=== PATIENT | female | born 1955 | race Caucasian/White ===

== ENCOUNTER 2016-08-16 07:10 | Outpatient (CLI) | payer OTHER | END 2016-08-16 07:11 | disposition home or self-care (01) | DX: R35.0 Frequency of micturition (principal) ==

== ENCOUNTER 2016-12-26 10:40 | Outpatient (CLI) | payer OTHER ==
[2016-12-26 13:07] LABS: BASOPHILS % (AUTO) 1.1 %; EOSINOPHILS # (AUTO) 0.1 10^3/uL (0.0-0.7); HCT - HEMATOCRIT 42.8 % (37.0-47.0); HGB - HEMOGLOBIN 14.6 g/dL (12.0-16.0); LYMPHOCYTES % (AUTO) 29.7 %; MEAN CORPUSCULAR HEMOGLOBIN 31.7 pg (27.0-31.0); MEAN CORPUSCULAR HGB CONC 34.1 g/dL (32.0-36.0); MEAN CORPUSCULAR VOLUME 92.9 fL (81.0-99.0); MEAN PLATELET VOLUME 8.3 fL (7.9-10.8); MONOCYTES # (AUTO) 0.3 10^3/uL (0.0-1.0); MONOCYTES % (AUTO) 9.9 %; NEUTROPHILS # (AUTO) 1.9 10^3/uL (1.5-6.6); NEUTROPHILS % (AUTO) 57.3 %; NUCLEATED RED BLOOD CELLS AUTO 0.1 /100WBC; RED BLOOD COUNT 4.61 10^6/uL (4.20-5.40); RED CELL DISTRIBUTION WIDTH 12.4 % (12.0-15.0); UNCORRECTED WHITE BLOOD COUNT 3.3 x10^3/uL; WHITE BLOOD COUNT 3.3 x10^3/uL (4.8-10.8)
[2016-12-26 13:50] LABS: ALBUMIN/GLOBULIN RATIO 1.6 (1.0-2.2); BILIRUBIN,TOTAL 0.5 mg/dL (0.2-1.0); BUN - BLOOD UREA NITROGEN 18 mg/dL (6-20); CALCIUM 9.7 mg/dL (8.5-10.3); CARBON DIOXIDE - CO2 25 mmol/L (21-32); CHLORIDE 106 mmol/L (101-111); CHOL/HDL RATIO 2.6 (<4.4); CHOLESTEROL 252 mg/dL; CREATININE 0.8 mg/dL (0.4-1.0); GFR - MDRD 72 (>89); GLUCOSE 115 mg/dL (70-100); HDL CHOLESTEROL 96 mg/dL; LDL/HDL RATIO 1.5 (<4.4); POTASSIUM 4.3 mmol/L (3.5-5.0); SODIUM 140 mmol/L (135-145); TOTAL PROTEIN 7.2 g/dL (6.7-8.2); TRIGLYCERIDES 80 mg/dL; VLDL CHOLESTEROL 16 mg/dL
== END 2016-12-26 10:41 | disposition home or self-care (01) ==
LOC: LAB.WCP 10:40
PROVIDERS: ATTEND Family Medicine
DX: Z00.00 Encounter for general adult medical examination without abnormal findings (principal); K58.9 Irritable bowel syndrome, unspecified; R19.7 Diarrhea, unspecified
CPT/HCPCS: 36415; 80053; 80061; 85025

== ENCOUNTER 2017-02-16 15:30 | Outpatient (CLI) | payer OTHER ==
[2017-02-16 12:52] LABS: BASOPHILS % (AUTO) 0.6 %; EOSINOPHILS # (AUTO) 0.2 10^3/uL (0.0-0.7); EOSINOPHILS % (AUTO) 3.9 %; HCT - HEMATOCRIT 42.3 % (37.0-47.0); HGB - HEMOGLOBIN 14.7 g/dL (12.0-16.0); LYMPHOCYTES # (AUTO) 1.1 10^3/uL (1.5-3.5); LYMPHOCYTES % (AUTO) 24.8 %; MEAN CORPUSCULAR HEMOGLOBIN 32.3 pg (27.0-31.0); MEAN CORPUSCULAR HGB CONC 34.7 g/dL (32.0-36.0); MEAN CORPUSCULAR VOLUME 93.3 fL (81.0-99.0); MEAN PLATELET VOLUME 8.1 fL (7.9-10.8); MONOCYTES # (AUTO) 0.3 10^3/uL (0.0-1.0); MONOCYTES % (AUTO) 7.1 %; NEUTROPHILS # (AUTO) 2.9 10^3/uL (1.5-6.6); NEUTROPHILS % (AUTO) 63.6 %; RED BLOOD COUNT 4.54 10^6/uL (4.20-5.40); RED CELL DISTRIBUTION WIDTH 12.6 % (12.0-15.0); UNCORRECTED WHITE BLOOD COUNT 4.5 x10^3/uL; WHITE BLOOD COUNT 4.5 x10^3/uL (4.8-10.8)
== END 2017-02-16 15:31 | disposition home or self-care (01) ==
LOC: LAB.WCP 15:30
PROVIDERS: ATTEND Family Medicine
DX: D72.819 Decreased white blood cell count, unspecified (principal)
CPT/HCPCS: 36415; 85025

== ENCOUNTER 2017-03-28 15:42 | Outpatient (CLI) | payer OTHER ==
--- NOTE | 2017-03-30 20:55 | Mammography Report ---
DIGITAL SCREENING MAMMOGRAM: 03/28/2017 CLINICAL INDICATION: A 52-ebmz-lfx-year-old for screening. COMPARISON: 12/2015, 01/2014, 11/2012, 03/2012, 01/2011, 01/2010. TECHNIQUE: Routine CC and MLO projections were obtained of the breasts. The breasts again demonstrate heterogeneously dense fibroglandular parenchyma bilaterally. Punctate, typically benign calcifications are present. No suspicious masses, clustered microcalcifications, o r regions of architectural distortion are identified. IMPRESSION: BENIGN FINDINGS. RECOMMENDATION: ROUTINE ANNUAL SCREENING UNLESS OTHERWISE CLINICALLY INDICATED. BIRADS CATEGORY: 2, BENIGN FINDINGS. STANDARD QUALIFYING STATEMENTS 1. This examination was reviewed with the aid of Computed-Aided Detection (CAD). 2. A negative or benign imaging report should not delay biopsy if clinically suspicious findings are present. Consider surgical consultation if warranted. More than 5% of cancers are not identified b y imaging. 3. Dense breasts may obscure an underlying neoplasm. JOB #: [id number] EXT JOB #:[id number]
== END 2017-03-28 15:43 | disposition home or self-care (01) ==
LOC: DI 15:42
PROVIDERS: ATTEND Family Medicine
DX: Z12.31 Encounter for screening mammogram for malignant neoplasm of breast (principal)
CPT/HCPCS: 77067

== ENCOUNTER 2017-08-02 12:18 | Day surgery (SDC) | payer OTHER ==
[2017-08-02] MEDS ORDERED: LACTATED RINGERS 1,000 ML IV ONE (13:11)
[2017-08-02] MEDS ORDERED: fentaNYL 250 MCG/5 ML VIAL IVP ONE (13:20)
[2017-08-02] MEDS ORDERED: MIDAZOLAM 2 MG/2 ML VIAL IVP ONE (13:20)
[2017-08-02 14:36] VITALS: BP 110/50
== END 2017-08-02 12:19 | disposition home or self-care (01) ==
LOC: SDS 12:18
PROVIDERS: ATTEND Internal Medicine
PROC: 0DBE8ZX Excision of Large Intestine, Via Natural or Artificial Opening Endoscopic, Diagnostic (ICD-10-PCS; principal; 2017-08-02 13:00)
DX: R19.7 Diarrhea, unspecified (principal); K62.5 Hemorrhage of anus and rectum; K64.8 Other hemorrhoids; K57.30 Diverticulosis of large intestine without perforation or abscess without bleeding; F41.9 Anxiety disorder, unspecified; F32.9 Major depressive disorder, single episode, unspecified; E03.9 Hypothyroidism, unspecified
CPT/HCPCS: 45380; J3010; J7120

== ENCOUNTER 2017-12-18 08:00 | Outpatient (CLI) | payer OTHER ==
[2017-12-18 19:33] LABS: CALCIUM 9.7 mg/dL (8.5-10.3); CREATININE 0.9 mg/dL (0.4-1.0)
[2017-12-18 19:38] LABS: BASOPHILS % (AUTO) 0.7 %; EOSINOPHILS # (AUTO) 0.1 10^3/uL (0.0-0.7); EOSINOPHILS % (AUTO) 2.7 %; HGB - HEMOGLOBIN 15.1 g/dL (12.0-16.0); LYMPHOCYTES # (AUTO) 1.1 10^3/uL (1.5-3.5); LYMPHOCYTES % (AUTO) 25.4 %; MEAN CORPUSCULAR HEMOGLOBIN 32.4 pg (27.0-31.0); MEAN CORPUSCULAR HGB CONC 34.3 g/dL (32.0-36.0); MEAN CORPUSCULAR VOLUME 94.5 fL (81.0-99.0); MEAN PLATELET VOLUME 8.6 fL (7.9-10.8); MONOCYTES # (AUTO) 0.4 10^3/uL (0.0-1.0); MONOCYTES % (AUTO) 8.9 %; NEUTROPHILS # (AUTO) 2.7 10^3/uL (1.5-6.6); NEUTROPHILS % (AUTO) 62.3 %; PLT - PLATELET COUNT 236 10^3/uL (130-450); RED BLOOD COUNT 4.64 10^6/uL (4.20-5.40); RED CELL DISTRIBUTION WIDTH 13.3 % (12.0-15.0); WHITE BLOOD COUNT 4.3 x10^3/uL (4.8-10.8)
== END 2017-12-18 08:01 | disposition home or self-care (01) ==
LOC: LAB.WCP 08:00
PROVIDERS: ATTEND Family Medicine
DX: D72.819 Decreased white blood cell count, unspecified (principal); E03.9 Hypothyroidism, unspecified
CPT/HCPCS: 36415; 80048; 84439; 84443; 85025

== ENCOUNTER 2018-02-02 12:54 | Outpatient (CLI) | payer OTHER ==
--- NOTE | 2018-02-02 16:10 | Ultrasound Report ---
Reason: ABDOMINAL PAIN,RIGHT UPPER QUADRANT Procedure Date: 02/02/2018 Accession Number: [id number] / [id number] Procedure: US - Abdomen Limited CPT Code: FULL RESULT: EXAM: ABDOMEN ULTRASOUND LIMITED, RUQ EXAM DATE: 02/02/2018 02:13 PM. CLINICAL HISTORY: Abdominal pain, right upper quadrant. COMPARISON: None. TECHNIQUE: Real-time scanning was performed with static images obtained. FINDINGS: Liver: Normal in size and echotexture. Right lobe of the liver measures up to 15.4 cm. Main portal vein flow: Hepatopetal. Gallbladder: Normal. No stones, wall thickening, or sonographic Rasheed's sign. Biliary System: CBD measures 6 mm. No intrahepatic or extrahepatic ductal dilatation. Other: Dedicated sonographic evaluation of the palpable lump along the right back was performed and demonstrated a 1.3 x 0.7 x 0.5 cm ill-defined mildly hyperechoic relative to the surrounding fat mass without increased vascularity by color Doppler. This appearance is nonspecific but possibly represents a lipoma. IMPRESSION: No cholelithiasis or cholecystitis. Nonspecific soft tissue mass as described, possibly lipoma. RADIA
== END 2018-02-02 12:55 | disposition home or self-care (01) ==
LOC: DI 12:54
PROVIDERS: ATTEND Family Medicine
DX: R10.11 Right upper quadrant pain (principal)
CPT/HCPCS: 76705

== ENCOUNTER 2018-02-20 09:06 | Outpatient (CLI) | payer OTHER ==
[2018-02-20] MEDS ORDERED: SINCALIDE 5 MCG VIAL ONE (10:12)
[2018-02-20] MEDS ORDERED: SINCALIDE 1.6 MCG in SODIUM CHLORIDE 0.9% 50 ML IV ONE (12:20)
--- NOTE | 2018-02-20 15:53 | Nuclear Medicine Report ---
Reason: ABDOMINAL PAIN, RUQ Procedure Date: 02/20/2018 Accession Number: [id number] / [id number] Procedure: NM - Hepatobiliary HIDA w/ Rx CPT Code: FULL RESULT: EXAM: HEPATOBILIARY SCAN WITH CCK/KINEVAC ADMINISTRATION EXAM DATE: 02/20/2018 12:16 PM. CLINICAL HISTORY: ABDOMINAL PAIN, RUQ. COMPARISON: None. TECHNIQUE: Following the intravenous administration of 5.2 mCi of Tc99m Mebrofenin, a hepatobiliary scan was done centered on the liver and gallbladder in multiple sequential images and projections. Following the intravenous administration of 1.6 mcg of CCK/ Kinevac over the course of approximately 60 minutes, dynamic imaging was done and the gallbladder ejection fraction was calculated. FINDINGS: Normal extraction of tracer from the blood pool indicating normal hepatocellular function. The liver size and shape is grossly within normal limits. Appearance of tracer in the biliary tree as early as 5 minutes, within normal limits. Appearance of tracer in the gallbladder as early as 15 minutes, within normal limits, with good progression of filling throughout the remainder of the initial hour. Appearance of tracer in the small bowel following CCK administration. With CCK administration, the gallbladder demonstrates an effective contraction. The gallbladder ejection fraction is calculated to be 98%, well above the lower limit of normal of 38% for a 60-minute injection. No evidence of enteric reflux into the stomach. No significant collection of tracer remaining in the common bile duct by the end of the study. IMPRESSION: 1. No scintigraphic evidence of acute cholecystitis. 2. Patent common bile duct. 3. Gallbladder ejection fraction is in the normal range. 4. Delayed biliary to bowel transit. This is a nonspecific finding that can be seen in a subset of normal patients, however differential considerations include biliary dyskinesia and chronic cholecystitis, among others. RADIA
== END 2018-02-20 09:07 | disposition home or self-care (01) ==
LOC: DI 09:06
PROVIDERS: ATTEND Nurse Practitioner
DX: R10.11 Right upper quadrant pain (principal)
CPT/HCPCS: 78227; J7040

== ENCOUNTER 2018-08-27 08:00 | Outpatient (CLI) | payer OTHER ==
[2018-08-27 12:46] LABS: ALBUMIN 3.9 g/dL (3.2-5.5); ALBUMIN/GLOBULIN RATIO 1.4 (1.0-2.2); ALKALINE PHOSPHATASE 69 IU/L (42-121); ALT ALANINE AMINOTRANSFERASE 24 IU/L (10-60); AST ASPARTATE AMINOTRANSFERASE 29 IU/L (10-42); BILIRUBIN,TOTAL 0.5 mg/dL (0.2-1.0); BUN - BLOOD UREA NITROGEN 15 mg/dL (6-20); CALCIUM 9.2 mg/dL (8.5-10.3); CARBON DIOXIDE - CO2 22 mmol/L (21-32); CHLORIDE 110 mmol/L (101-111); CHOL/HDL RATIO 3.5 (<4.4); CHOLESTEROL 267 mg/dL; CREATININE 0.8 mg/dL (0.4-1.0); GFR - MDRD 72 (>89); GLUCOSE 111 mg/dL (70-100); HDL CHOLESTEROL 76 mg/dL; LDL CHOLESTEROL,CALCULATED 161 mg/dL; LDL/HDL RATIO 2.1 (<4.4); SODIUM 141 mmol/L (135-145); TOTAL PROTEIN 6.6 g/dL (6.7-8.2); VLDL CHOLESTEROL 30 mg/dL
[2018-08-27 12:51] LABS: BASOPHILS % (AUTO) 0.9 %; EOSINOPHILS # (AUTO) 0.2 10^3/uL (0.0-0.7); EOSINOPHILS % (AUTO) 5.6 %; LYMPHOCYTES # (AUTO) 1.2 10^3/uL (1.5-3.5); LYMPHOCYTES % (AUTO) 27.4 %; MEAN CORPUSCULAR HEMOGLOBIN 31.5 pg (27.0-31.0); MEAN CORPUSCULAR HGB CONC 33.8 g/dL (32.0-36.0); MEAN PLATELET VOLUME 8.7 fL (7.9-10.8); MONOCYTES # (AUTO) 0.4 10^3/uL (0.0-1.0); MONOCYTES % (AUTO) 8.7 %; NEUTROPHILS # (AUTO) 2.4 10^3/uL (1.5-6.6); NEUTROPHILS % (AUTO) 57.4 %; PLT - PLATELET COUNT 217 10^3/uL (130-450); RED BLOOD COUNT 4.44 10^6/uL (4.20-5.40); RED CELL DISTRIBUTION WIDTH 12.3 % (12.0-15.0); WHITE BLOOD COUNT 4.3 x10^3/uL (4.8-10.8)
== END 2018-08-27 23:59 | disposition home or self-care (01) ==
LOC: LAB.WCP 08:00
PROVIDERS: ATTEND Family Medicine
DX: E03.9 Hypothyroidism, unspecified (principal); Z13.220 Encounter for screening for lipoid disorders
CPT/HCPCS: 36415; 80053; 80061; 83721; 84443; 85025

== ENCOUNTER 2018-10-03 15:04 | Outpatient (CLI) | payer OTHER ==
--- NOTE | 2018-10-04 08:50 | Mammography Report ---
Reason: SCREENING MAMMO Procedure Date: 10/03/2018 Accession Number: [id number] / [id number] Procedure: [facility] - Screening Mammo Dig Bilat CPT Code: FULL RESULT: EXAM: Screening Mammo Dig Bilat DATE: 10/03/2018 3:37 PM CLINICAL HISTORY: Screening encounter. Family history of breast cancer in a maternal grandmother at the age of 61. TECHNIQUE: (B) - Bilateral CC, laterally exaggerated CC, MLO views were obtained. COMPARISON: 03/28/2017 through 12/10/2012. PARENCHYMAL PATTERN: (D) - The breast(s) demonstrate(s) heterogeneously dense fibroglandular parenchyma. FINDINGS: There are coarse typically benign calcifications. There are no suspicious masses, calcifications, or areas of distortion. IMPRESSION: Benign findings. BI-RADS category 2. RECOMMENDATION: (ANNUAL) - Recommend routine annual screening mammography. BI-RADS CATEGORY: (2) - Benign Findings. STANDARD QUALIFYING STATEMENTS: 1. This examination was not reviewed with the aid of Computer-Aided Detection (CAD). 2. A negative or benign imaging report should not preclude biopsy if clinically suspicious findings are present. 3. Dense breasts may obscure an underlying neoplasm. 4. This examination was reviewed without the aid of 3D breast imaging (tomosynthesis).
== END 2018-10-03 15:05 | disposition home or self-care (01) ==
LOC: DI 15:04
PROVIDERS: ATTEND Family Medicine
DX: Z12.31 Encounter for screening mammogram for malignant neoplasm of breast (principal); Z80.3 Family history of malignant neoplasm of breast
CPT/HCPCS: 77067

== ENCOUNTER 2018-12-27 11:30 | Outpatient (CLI) | payer OTHER ==
--- NOTE | 2018-12-28 00:36 | XRAY Report ---
Reason: PRODUCTIVE COUGH PURULENT SPUTUM Procedure Date: 12/27/2018 Accession Number: [id number] / [id number] Procedure: XR - Chest 2 View X-Ray CPT Code: 22830 FULL RESULT: EXAM: CHEST RADIOGRAPHY EXAM DATE: 12/27/2018 11:55 AM. CLINICAL HISTORY: PRODUCTIVE COUGH PURULENT SPUTUM. COMPARISON: None. TECHNIQUE: 2 views. FINDINGS: Lungs/Pleura: No focal opacities evident. No pleural effusion. No pneumothorax. Normal volumes. Mediastinum: Heart and mediastinal contours are unremarkable. IMPRESSION: No acute cardiopulmonary disease seen. RADIA
== END 2018-12-27 11:31 | disposition home or self-care (01) ==
LOC: DI 11:30
PROVIDERS: ATTEND Family Medicine
DX: R05 Cough (principal)
CPT/HCPCS: 71046

== ENCOUNTER 2019-01-14 14:10 | Outpatient (CLI) | payer OTHER ==
--- NOTE | 2019-01-14 15:09 | SLEEP CARE CONSULTATION ---
Information from patient questionnaire entered by Radha Davis. I have reviewed and concur with the information entered by Radha Davis. This document represents the service I personally performed and the decisions made by me, Shanice Stevens MD, [facility]. History of Present Illness Reason for Visit: Re-establish care Chief Complaint: reports: Other (PREVIOUSLY DIAGNOSED MODERATE OBSTRUCTIVE SLEEP APNEA (AHI 18.8)) Duration of Symptoms: 10 YEARS Usual bedtime: 7272-9929 Time it takes to fall asleep: 30 MINUTES Snores at night: Yes Observed to quit breathing while asleep: Yes Sleeps alone due to snoring: No Number of times waking at night: 1-2 Toss, Turn, or Twitch while sleeping: Yes Recalls having dreams: Yes Usually gets out of bed at: 0700 Feels refreshed in the morning: No Morning headache: No Ever fallen asleep while driving: Yes Takes day naps: No Dreams during day naps: No Prior sleep studies: Yes Year and Where: 2008 [facility] SLEEP [facility] Additional HPI information: I had the pleasure of seeing Ms. Carmona today regarding obstructive sleep apnea-hypopnea. As you know, she is a 63 year old lady who was diagnosed with the sleep-disordered breathing here in 2008. The AHI was 18.8 and ramona oxygen saturation, 82%. She was prescribed a CPAP device set at 7 cmH2O. She continues to use every night and all night. The compliance/efficacy report is not available because she did not have the memory card inserted all the way into her machine. She wears a full face mask. She gets his supplies from [employer]. She finds the treatment helpful at first but not much now and wonders if she still needs to use it. She lost 40 lbs since she had the sleep studies 10 years ago. She talked to an ENT at [facility] and was offered laser surgery to the soft palate. She complains of chronic cough and nasal congestion. Subjective Initial [place] Sleepiness Scale score: 8 Past Medical History Past Medical History: reports: Anxiety, Depression, Other (PTSD, PEDRO) Social History The patient's occupation is RETIRED. Patient is and lives in [place]. Have you smoked in the past 12 months: No Alcohol use: No Caffeine use: Yes Caffeine amount and frequency: 1-2 CUPS BEFORE NOON Family History Family history of sleep disordered breathing: Yes Family Hx Sleep Apnea: Father: Sleep apnea - Treated, Sibling: Snoring Allergies and Home Medications Drug allergies reviewed: Yes Home medication list reviewed: Yes Review of Systems Weight loss over past 5 years: 30LBS Cardiovascular: denies: high blood pressure, palpitations, chest pain, irregular heart rate or pulse, leg or foot swelling, have to sleep sitting up, other Respiratory: reports: sputum production, chronic cough Gastrointestinal: denies: heartburn, difficulty swallowing, nausea, vomitting, diarrhea, abdominal pain, other Urinary: denies: incontinence, frequency, urgency, impotence, other Neurological: denies: headaches, seizure, head trauma, disorientation, speech dysfunction, gait or balance problems, fainting or unconsciousness, other Psychiatric: reports: anxiety, depression Ear/Nose/Throat: reports: nasal congestion, sinus problems Endocrine: reports: thyroid disease Immunologic: denies: sneezing, rash, itching, allergies to food or environment, other Physical Exam Vital signs obtained and entered by: Dr. Stevens Blood Pressure: 120/80 Cuff size: long Heart Rate: 70 O2 Saturation: 97 Height: 5 ft 5 in Weight (kg): 165 lb (was 197 in 2009) Body Mass Index: 27.4 BMI Classification: Overweight Neck circumference: 13.5 (was 14.5 in 2009) HEENT: No craniofacial malformation Nostrils: patent to airflow Turbinates: normal Septum: midline Mouth and throat: narrow oropharynx Soft palate: long Hard palate: normal Uvula visualization: 100% Mallampati Class I Tongue: normal in size Tonsils: absent bilaterally Chin and jaw: normal size and position Neck: Thryomegaly Lungs: clear bilaterally Abdomen: soft Extremities: no edema or clubbing Neurologic: intact Impression and Plan I spent 100% of this [15][30] minute visit face to face with the patient with greater than 50% of this was spent time counseling the patient and coordination of care.
[2019-01-14 15:10] VITALS: BP 120/80
== END 2019-01-14 14:11 | disposition home or self-care (01) ==
LOC: SC 14:10
PROVIDERS: ATTEND Internal Medicine Pulmonary Disease
DX: G47.33 Obstructive sleep apnea (adult) (pediatric) (principal)
CPT/HCPCS: 99203; 99212

== ENCOUNTER 2019-01-28 19:27 | Outpatient (CLI) | payer OTHER | END 2019-01-28 19:28 | disposition home or self-care (01) | LOC: SC 19:27 | PROVIDERS: ATTEND Internal Medicine Pulmonary Disease | DX: G47.33 Obstructive sleep apnea (adult) (pediatric) (principal) | CPT/HCPCS: 95810 ==

== ENCOUNTER 2019-02-12 12:47 | Outpatient (CLI) | payer OTHER ==
--- NOTE | 2019-02-12 13:13 | SLEEP CARE CONSULTATION ---
Information from patient questionnaire entered by Arelis Ruffin. I have reviewed and concur with the information entered by Arelis Ruffin. This document represents the service I personally performed and the decisions made by me, Shanice Stevens MD, [facility]. History of Present Illness Initial [place] Sleepiness Scale score: 8 Current Kila Sleepiness Scale score: 2 Additional HPI information: HPI: returned for follow up of the sleep study she had on 01/28/2019. The polysomnography showed that the patient had normal sleep efficiency. The sleep architecture was normal as well. Respiratory monitoring showed no significant sleep disordered breathing (AHI = 2.8). There was mild hypoxia (ramona oxygen saturation of 86% and 10% to the total sleep time was spent with oxygen saturation below 90%). The few respiratory events occurred mainly during supine REM sleep (supine AHI = 8.8; non-supine = 0.00). Snore was light to loud in intensity. There was no significant periodic leg movement of sleep. Cardiac rhythm was normal sinus rhythm without significant arrhythmia. No abnormal behavior (parasomnia) observed during the night. The patient was informed of these findings. I explained to her that the sleep- disordered breathing has resolved. There is only a slight evidence of it during supine sleep. Allergies and Home Medications Drug allergies reviewed: Yes Home medication list reviewed: Yes Review of Systems Review of systems same as previous: Yes Physical Exam Weight: 165 lb Impression and Plan IMPRESSION: 1. Obstructive Sleep Apnea-Hypopnea Syndrome, resolved with 40-lb weight loss. Snore remains light to loud. She may use her CPAP on as needed basis. If she uses the CPAP, she should keep the heated humidifier setting high to help with chronic sinusitis. PLAN: 1. Use CPAP on as needed basis. 2. Attempt to lose more weight. 3. Return for urinary frequency on as needed basis. I spent 100% of this 20 minute visit face to face with the patient with greater than 50% of this was spent time counseling the patient and coordination of care.
== END 2019-02-12 12:48 | disposition home or self-care (01) ==
LOC: SC 12:47
PROVIDERS: ATTEND Internal Medicine Pulmonary Disease
DX: G47.33 Obstructive sleep apnea (adult) (pediatric) (principal)
CPT/HCPCS: 99212; 99213

== ENCOUNTER 2019-03-13 11:30 | Outpatient (CLI) | payer OTHER | END 2019-03-13 11:31 | disposition home or self-care (01) | LOC: RT 11:30 | PROVIDERS: ATTEND Specialist | DX: J32.9 Chronic sinusitis, unspecified (principal) | CPT/HCPCS: 93005 ==

== ENCOUNTER 2019-06-15 08:00 | Outpatient (CLI) | payer MEDICARE, OTHER | END 2019-06-15 23:59 | disposition home or self-care (01) | LOC: LAB.R 08:00 | PROVIDERS: ATTEND Family Medicine | DX: L03.211 Cellulitis of face (principal) | CPT/HCPCS: 87070; 87205 ==

== ENCOUNTER 2020-09-17 | Emergency (ER) | payer MEDICARE, OTHER, BC ==
--- NOTE | 2020-09-17 11:02 | ED Physician Documentation ---
History of Present Illness - Stated complaint Stated Complaint: RT BREAST PX - Chief complaint Chief Complaint: General - History obtained from History obtained from: Patient - History of Present Illness Timing: How many days ago (2) Pain level max: 4 Pain level now: 3 - Additonal information Additional information: 65-year-old female with pain to the right breast for several days. Redness, swelling, tender. No fevers. No chills. No injury. Nothing makes it better or worse. Review of Systems Ten Systems: 10 systems reviewed and negative Constitutional: denies: Fever, Chills, Myalgias Nose: denies: Rhinorrhea / runny nose GI: denies: Vomiting, Constipation, Diarrhea Skin: denies: Rash Musculoskeletal: denies: Neck pain, Back pain Neurologic: denies: Headache PD PAST MEDICAL HISTORY - Past Medical History Cardiovascular: None Respiratory: Sleep apnea, CPAP use GI: Chronic diarrhea, Hemorrhoids : None HEENT: None Psych: None Musculoskeletal: Osteoarthritis Derm: None - Past Surgical History General: Colonoscopy Ortho: Other HEENT: Tonsil/Adenoidectomy - Present Medications Home Medications: Ambulatory Orders Medication Instructions Recorded Confirmed Levothyroxine [Synthroid] 100 mcg PO DAILY 04/28/14 08/01/17 Alprazolam [Xanax] 0.25 mg PO PRN PRN 08/02/17 08/02/17 clindamycin HCL [Cleocin HCl] 300 mg PO Q6H #40 cap 09/17/20 - Allergies Allergies/Adverse Reactions: Allergies Allergy/AdvReac Type Severity Reaction Status Date / Time Penicillins Allergy Edema Verified 09/17/20 10:47 PD ED PE NORMAL - Vitals Vital signs reviewed: Yes - General General: Alert and oriented X 3, No acute distress - HEENT HEENT: Moist mucous membranes - Neck Neck: Supple, no meningeal sign - Cardiac Cardiac: RRR, Strong equal pulses - Respiratory Respiratory: No respiratory distress, Clear bilaterally - Derm Derm: Warm and dry - Neuro Neuro: Alert and oriented X 3 - Free text exam Free text exam: Erythema surrounding the right areola and nipple, approximately 3 cm. There is firmness underneath the nipple as well. There is no drainage or discharge. No dimpling of the skin. No lymphadenopathy. Results - Vitals Vitals: Vital Signs - 24 hr 09/17/20 10:40 Temperature 36.6 C Heart Rate 76 Respiratory 18 Rate Blood Pressure 168/77 H O2 Saturation 99 Oxygen O2 Source Room air PD MEDICAL DECISION MAKING - ED course Complexity details: considered differential, d/w patient ED course: Patient with what appears to be a mastitis, also on the differential would be an abscess or breast cancer. Bedside ultrasound does not reveal an abscess. We will trial on antibiotics and have her follow-up closely with general surgery, as if she fails to improve, would likely need further care to evaluate for abscess or cancer. Patient counseled regarding signs and symptoms for which I believe and urgent re-evaluation would be necessary. Patient with good understanding of and agreement to plan and is comfortable going home at this time This document was made in part using voice recognition software. While efforts are made to proofread this document, sound alike and grammatical errors may occur. Departure - Departure Disposition: 01 Home, Self Care Clinical Impression: Mastitis Condition: Good Instructions: ED Breast Infec Follow-Up: ROBERTO HERNANDEZ ARNP [Primary Care Provider] - Ben Meyers MD [Provider Admit Priv/Credential] - Within 1 week Prescriptions: clindamycin HCL [Cleocin HCl] 300 mg PO Q6H #40 cap Comments: Take all antibiotics until gone. Return if you worsen. If this is not improving as expected, you may end up needing a biopsy of the area as inflammatory breast cancers could present similarly. Please follow-up with your doctor and Dr. Meyers for further care. Discharge Date/Time: 09/17/20 12:00
== END 2020-09-17 12:00 | disposition home or self-care (01) ==
DX: N61.0 Mastitis without abscess (principal)
CPT/HCPCS: 99282; 99284

== ENCOUNTER 2021-05-12 08:00 | Outpatient (CLI) | payer MEDICARE, OTHER, BC ==
[2021-05-12 18:18] LABS: BASOPHILS % (AUTO) 0.8 %; EOSINOPHILS # (AUTO) 0.1 10^3/uL (0.0-0.7); EOSINOPHILS % (AUTO) 2.6 %; HCT - HEMATOCRIT 43.5 % (37.0-47.0); HGB - HEMOGLOBIN 14.8 g/dL (12.0-16.0); LYMPHOCYTES # (AUTO) 1.2 10^3/uL (1.5-3.5); LYMPHOCYTES % (AUTO) 21.8 %; MEAN CORPUSCULAR HEMOGLOBIN 32.7 pg (27.0-31.0); MEAN CORPUSCULAR VOLUME 96.2 fL (81.0-99.0); MEAN PLATELET VOLUME 9.9 fL (7.9-10.8); MONOCYTES # (AUTO) 0.4 10^3/uL (0.0-1.0); MONOCYTES % (AUTO) 7.1 %; NEUTROPHILS # (AUTO) 3.6 10^3/uL (1.5-6.6); NEUTROPHILS % (AUTO) 67.5 %; PLT - PLATELET COUNT 269 10^3/uL (130-450); RED BLOOD COUNT 4.52 10^6/uL (4.20-5.40); RED CELL DISTRIBUTION WIDTH 11.8 % (12.0-15.0); WHITE BLOOD COUNT 5.3 x10^3/uL (4.8-10.8)
[2021-05-12 18:39] LABS: CALCIUM 10.2 mg/dL (8.5-10.3); POTASSIUM 4.3 mmol/L (3.5-5.0)
[2021-05-12 18:51] LABS: FREE T3 3.56 pg/mL (2.5-3.9)
[2021-05-12 18:52] LABS: FREE T4 (FREE THYROXINE) 0.63 ng/dL (0.58-1.64)
== END 2021-05-12 23:59 ==
LOC: LAB.WCP 08:00
PROVIDERS: ATTEND Family Medicine
DX: M16.12 Unilateral primary osteoarthritis, left hip (principal); E03.9 Hypothyroidism, unspecified
CPT/HCPCS: 36415; 80048; 84439; 84443; 84481; 85025

== ENCOUNTER 2022-05-19 11:51 | Outpatient (CLI) | payer MEDICARE, OTHER, BC ==
[2022-05-19 12:11] LABS: BASOPHILS % (AUTO) 0.6 %; EOSINOPHILS # (AUTO) 0.2 10^3/uL (0.0-0.7); EOSINOPHILS % (AUTO) 3.7 %; LYMPHOCYTES # (AUTO) 1.2 10^3/uL (1.5-3.5); LYMPHOCYTES % (AUTO) 25.3 %; MEAN CORPUSCULAR HEMOGLOBIN 32.3 pg (27.0-31.0); MEAN CORPUSCULAR HGB CONC 32.6 g/dL (32.0-36.0); MEAN CORPUSCULAR VOLUME 99.3 fL (81.0-99.0); MEAN PLATELET VOLUME 9.4 fL (7.9-10.8); MONOCYTES # (AUTO) 0.3 10^3/uL (0.0-1.0); NEUTROPHILS # (AUTO) 3.1 10^3/uL (1.5-6.6); NEUTROPHILS % (AUTO) 64.2 %; PLT - PLATELET COUNT 190 10^3/uL (130-450); RED BLOOD COUNT 4.33 10^6/uL (4.20-5.40); WHITE BLOOD COUNT 4.8 x10^3/uL (4.8-10.8)
[2022-05-19 13:47] LABS: FREE T3 3.15 pg/mL (2.5-3.9); THYROID STIMULATING HORMONE 11.32 uIU/mL (0.34-5.60)
[2022-05-19 13:48] LABS: FREE T4 (FREE THYROXINE) 0.49 ng/dL (0.58-1.64)
[2022-05-19 14:06] LABS: ALBUMIN 4.1 g/dL (3.2-5.5); ALBUMIN/GLOBULIN RATIO 1.3 (1.0-2.2); ALKALINE PHOSPHATASE 61 IU/L (42-121); ALT ALANINE AMINOTRANSFERASE 20 IU/L (10-60); AST ASPARTATE AMINOTRANSFERASE 21 IU/L (10-42); BILIRUBIN,TOTAL 0.9 mg/dL (0.2-1.0); BUN - BLOOD UREA NITROGEN 16 mg/dL (6-20); CALCIUM 9.5 mg/dL (8.5-10.3); CARBON DIOXIDE - CO2 26 mmol/L (21-32); CHLORIDE 102 mmol/L (101-111); CHOL/HDL RATIO 4.2 (<4.4); CHOLESTEROL 299 mg/dL; CREATININE 0.9 mg/dL (0.4-1.0); GFR - MDRD 62 (>89); GLUCOSE 90 mg/dL (70-100); HDL CHOLESTEROL 71 mg/dL; LDL CHOLESTEROL,CALCULATED 183 mg/dL; LDL/HDL RATIO 2.6 (<4.4); POTASSIUM 4.3 mmol/L (3.5-5.0); SODIUM 136 mmol/L (135-145); TOTAL PROTEIN 7.2 g/dL (6.7-8.2); TRIGLYCERIDES 226 mg/dL; VLDL CHOLESTEROL 45 mg/dL
== END 2022-05-19 11:52 | disposition home or self-care (01) ==
LOC: LAB 11:51
PROVIDERS: ATTEND Family Medicine
DX: E03.9 Hypothyroidism, unspecified (principal); G47.33 Obstructive sleep apnea (adult) (pediatric)
CPT/HCPCS: 36415; 80053; 80061; 83721; 84439; 84443; 84481; 85025

== ENCOUNTER 2022-07-19 10:09 | Outpatient (CLI) | payer MEDICARE, OTHER, BC ==
[2022-07-19 12:06] LABS: BASOPHILS % (AUTO) 0.5 %; EOSINOPHILS # (AUTO) 0.1 10^3/uL (0.0-0.7); HCT - HEMATOCRIT 42.6 % (37.0-47.0); LYMPHOCYTES # (AUTO) 1.1 10^3/uL (1.5-3.5); LYMPHOCYTES % (AUTO) 25.1 %; MEAN CORPUSCULAR HEMOGLOBIN 32.3 pg (27.0-31.0); MEAN CORPUSCULAR HGB CONC 32.9 g/dL (32.0-36.0); MEAN CORPUSCULAR VOLUME 98.4 fL (81.0-99.0); MONOCYTES # (AUTO) 0.4 10^3/uL (0.0-1.0); MONOCYTES % (AUTO) 8.2 %; NEUTROPHILS # (AUTO) 2.7 10^3/uL (1.5-6.6); NEUTROPHILS % (AUTO) 62.7 %; PLT - PLATELET COUNT 222 10^3/uL (130-450); RED BLOOD COUNT 4.33 10^6/uL (4.20-5.40); RED CELL DISTRIBUTION WIDTH 11.6 % (12.0-15.0); WHITE BLOOD COUNT 4.3 x10^3/uL (4.8-10.8)
[2022-07-19 12:36] LABS: ALBUMIN 4.3 g/dL (3.2-5.5); ALBUMIN/GLOBULIN RATIO 1.6 (1.0-2.2); ALKALINE PHOSPHATASE 56 IU/L (42-121); ALT ALANINE AMINOTRANSFERASE 22 IU/L (10-60); AST ASPARTATE AMINOTRANSFERASE 25 IU/L (10-42); BILIRUBIN,TOTAL 0.6 mg/dL (0.2-1.0); BUN - BLOOD UREA NITROGEN 16 mg/dL (6-20); CALCIUM 9.3 mg/dL (8.5-10.3); CARBON DIOXIDE - CO2 25 mmol/L (21-32); CHLORIDE 107 mmol/L (101-111); CHOL/HDL RATIO 3.4 (<4.4); CHOLESTEROL 276 mg/dL; CREATININE 0.9 mg/dL (0.4-1.0); GFR - MDRD 62 (>89); GLUCOSE 112 mg/dL (70-100); HDL CHOLESTEROL 81 mg/dL; LDL CHOLESTEROL,CALCULATED 169 mg/dL; LDL/HDL RATIO 2.1 (<4.4); POTASSIUM 4.3 mmol/L (3.5-5.0); SODIUM 139 mmol/L (135-145); TRIGLYCERIDES 131 mg/dL; VLDL CHOLESTEROL 26 mg/dL
[2022-07-19 12:37] LABS: THYROID STIMULATING HORMONE < 0.08 uIU/mL (0.34-5.60)
[2022-07-19 12:39] LABS: FREE T3 5.07 pg/mL (2.5-3.9)
== END 2022-07-19 10:10 | disposition home or self-care (01) ==
LOC: LAB.N 10:09
PROVIDERS: ATTEND Family Medicine
DX: E03.9 Hypothyroidism, unspecified (principal); G47.33 Obstructive sleep apnea (adult) (pediatric)
CPT/HCPCS: 36415; 80053; 80061; 83721; 84439; 84443; 84481; 85025

== ENCOUNTER 2023-04-13 13:34 | Outpatient (CLI) | payer MEDICARE, OTHER, BC ==
--- NOTE | 2023-04-13 14:42 | XRAY Report ---
PROCEDURE: Sinus Complete INDICATIONS: ACUTE SINUSITIS TECHNIQUE: 3 views of the sinuses were acquired. COMPARISON: None. FINDINGS: Sinuses: The visualized sinuses demonstrate no air-fluid levels. The visualized mastoids also appea r clear. Bones: No suspicious bony lesions. Nasal septum is midline. IMPRESSION: No air-fluid levels to suggest acute sinusitis. CT sinus can be obtained for further evaluation as cl inically indicated. Reviewed by: Deshawn Minaya MD on 04/13/2023 2:41 PM PST Approved by: Deshawn Minaya MD on 04/13/2023 2:41 PM PST Station ID: [id number]
== END 2023-04-13 13:35 | disposition home or self-care (01) ==
LOC: DI 13:34
PROVIDERS: ATTEND Family Medicine
DX: J01.90 Acute sinusitis, unspecified (principal)

== ENCOUNTER 2023-05-26 09:37 | Outpatient (CLI) | payer MEDICARE, OTHER, BC ==
--- NOTE | 2023-05-26 13:16 | CT Report ---
PROCEDURE: Sinus INDICATIONS: CHRONIC PANSINUSITIS TECHNIQUE: Noncontrast 3.0 mm axial images acquired from the frontal sinuses to the mid-sella, with coronal and sagittal reformats. For radiation dose reduction, the following was used: automated exposure control , adjustment of mA and/or kV according to patient size. COMPARISON: Correlation is made with prior plain films, 04/13/2023. FINDINGS: Image quality: Metallic streak artifact is seen, which is greatly improved by the metal suppression algorithm. Maxillary Sinuses: Portions of the medial wilson of the maxillary sinuses have been removed. There is mild to moderate mucosal thickening seen on the left and mild mucosal thickening seen on the right. Ethmoid Air Cells: Prominent portions of the ethmoid air cell septations have been removed. Mild muc osal thickening can be seen within the remaining ethmoid air cells. Sphenoid Sinuses: No bony remodeling or destruction. Mild to moderate mucosal thickening can be seen within the sphenoid sinuses, right worse than left. Frontal Sinuses: No bony remodeling or destruction. There is mild to moderate mucosal thickening wit hin the inferior medial right frontal sinus. Ostiomeatal Complexes: Removed. Miscellaneous: Visualized intra-orbital contents are normal. No bety bullosa. No significant na kirill septal deviation. IMPRESSION: Prior postoperative change, with bilateral antrectomy, with removal of prominent portions of the ethm oid air cell septations. Multiple foci of underlying paranasal sinus disease can be seen. Reviewed by: Stalin Pate MD on 05/26/2023 12:14 PM [facility] Approved by: Stalin Pate MD on 05/26/2023 12:14 PM [facility] Station ID: [id number]
== END 2023-05-26 09:38 | disposition home or self-care (01) ==
LOC: DI 09:37
PROVIDERS: ATTEND Physician Assistant
DX: J32.4 Chronic pansinusitis (principal)

== ENCOUNTER 2023-12-07 14:34 | Outpatient (CLI) | payer MEDICARE, OTHER, BC ==
--- NOTE | 2023-12-08 10:54 | Mammography Report ---
BILATERAL DIGITAL SCREENING MAMMOGRAM 3D/2D: 12/07/2023 CLINICAL: Routine screening. Comparison is made to exams dated: 05/28/2021 mammogram - [facility], 10/03/2018 mammogram, 03/28/20 17 mammogram, and 02/26/2014 mammogram - [facility]. Both breasts are heterogeneously dense, which may obscure small masses (category c / 51-75% glandular tissue). No significant masses, calcifications, or other findings are seen in either breast. There has been no significant interval change. IMPRESSION: NEGATIVE There is no mammographic evidence of malignancy. A 1 year screening mammogram is recommended. Based on the Tyrer Cuzick model (a risk assessment model) the patient's lifetime risk is 9.7% and her 10 year risk is 6.2%. According to the ACR, ACS, and NCCN guidelines, an annual breast MRI exam jennifer g with mammogram is recommended if the patient's lifetime risk is 20% or greater. This exam was interpreted at Station ID: [id number]. NOTE: For mammograms, a report in lay terms will be sent to the patient. Approximately 15% of breast malignancies will not be visualized mammographically. In the management of a palpable breast mass, a negative mammogram must not discourage biopsy of a clinically suspicious lesion. Electronically Signed By: Robin almanza/fabian:12/07/2023 18:40:15 letter sent: No_Letter ACR BI-RADS Category 1: Negative 3341F PARENCHYMAL PATTERN: (D) - The breast(s) demonstrate(s) heterogeneously dense fibroglandular piero alvarez. BI-RADS CATEGORY: (1) - 1 RECOMMENDATION: (ANNUAL) - Recommend routine annual screening mammography. [id number] 1 year screening LATERALITY: (B)
== END 2023-12-07 14:35 | disposition home or self-care (01) ==
LOC: DI 14:34
DX: Z12.31 Encounter for screening mammogram for malignant neoplasm of breast (principal); R92.333 Mammographic heterogeneous density, bilateral breasts